=== PATIENT | male | born 1950 | race Caucasian/White ===

== ENCOUNTER 2024-03-15 11:11 | Day surgery (SDC) | payer MEDICARE, OTHER ==
[~2024-03-15] VITALS: Ht 172.7 cm; Wt 119.5 kg
[~2024-03-15 11:11] MED LIST: ALLO300 PO; AMIT25 PO; AMLO5 PO; ASPI81CH PO; ASPI81EC; ASPI81EC PO; ATOR10; ATOR10 PO; ATOR20 PO; Balanced Salt Epinephrine Irrigation Solution 500 mL IR SCH; CEPH500 PO; CLOP75 PO; COLPRO; Cymbalta20 MG; DULO60 PO; ESOM20 PO; FentaNYL Citrate 50 MCG/ML 2 ML Injection ONE; GABA300 PO; ISOD40ER PO; LISI5 PO; Lidocaine HCl/Pf 1% 5 ML VIAL XX SCH; METF500 PO; METO2.5 PO; METO50 PO; METO50ER; METO50ER PO; Micro-K10 MEQ; Midazolam HCl 1MG / ML 2ML Vial ONE; Mirapex1 MG; Moxifloxacin HCL 0.5 MG/0.1 ML 0.4MLSYR RIGHTEYE SCH; NS 500 ML IV ONE; Omeprazole20 M1 PO; PHENYLEPHRINE\\TROPICAMIDE\\TETRACAINE OPHTHALMIC DILATING SOLN RIGHTEYE PRN; PRAM.125; Povidone-Iodine 450 DROP/30 ML Solution RIGHTEYE SCH; Probenecid-Col1 EACH PO; RAMI2.5; RAMI5 PO; SERT100; TAMS.4ER PO; Triamcinolone Inj Susp 40 MG / ML 1ML Vial INJ SCH; Triamcinolone Inj Susp 40 MG / ML 1ML Vial ONE; UBID200 PO
[2024-03-15] MEDS ORDERED: LAMO100 PO (11:48)
[2024-03-15] MEDS ORDERED: TORSE20 PO (11:49)
[2024-03-15] MEDS ORDERED: POTA10T PO (11:49)
[2024-03-15] MEDS ORDERED: ESCI10 PO (11:50)
[2024-03-15] MEDS ORDERED: ALBU90OI INH (11:51)
[2024-03-15] MEDS ORDERED: GLIP2.5ER PO (11:51)
[2024-03-15] MEDS ORDERED: NS 500 ML IV ONE (11:53)
[2024-03-15] MEDS ORDERED: Tetracaine HCl 0.5% Opth Soln 15 ml RIGHTEYE ONE (12:51)
[2024-03-15 14:17] VITALS: BP 169/81
== END 2024-03-15 14:04 | disposition home or self-care (01) ==
LOC: ORSCSDS 11:11
PROVIDERS: Ophthalmology
PROC: 08RJ3JZ Replacement of Right Lens with Synthetic Substitute, Percutaneous Approach (ICD-10-PCS; principal; 2024-03-15 12:30)
DX: E11.36 Type 2 diabetes mellitus with diabetic cataract (principal); H25.813 Combined forms of age-related cataract, bilateral; H21.81 Floppy iris syndrome; E11.22 Type 2 diabetes mellitus with diabetic chronic kidney disease; I12.9 Hypertensive chronic kidney disease with stage 1 through stage 4 chronic kidney disease, or unspecified chronic kidney disease; N18.9 Chronic kidney disease, unspecified; Z79.4 Long term (current) use of insulin; Z79.02 Long term (current) use of antithrombotics/antiplatelets; Z79.899 Other long term (current) drug therapy; E66.01 Morbid (severe) obesity due to excess calories; Z68.41 Body mass index [BMI] 40.0-44.9, adult; Z87.891 Personal history of nicotine dependence; I25.2 Old myocardial infarction; G47.33 Obstructive sleep apnea (adult) (pediatric)
CPT/HCPCS: 82947; J2250; J3010; J3301; J7040; V2632

== ENCOUNTER 2024-03-22 10:48 | Day surgery (SDC) | payer MEDICARE, OTHER ==
[~2024-03-22] VITALS: Ht 172.7 cm; Wt 117.5 kg
[~2024-03-22 10:48] MED LIST changes: +ALBU90OI INH; +ESCI10 PO; -FentaNYL Citrate 50 MCG/ML 2 ML Injection ONE; +GLIP2.5ER PO; +LAMO100 PO; -Midazolam HCl 1MG / ML 2ML Vial ONE; +Moxifloxacin HCL 0.5 MG/0.1 ML 0.4MLSYR LEFTEYE SCH; -Moxifloxacin HCL 0.5 MG/0.1 ML 0.4MLSYR RIGHTEYE SCH; +PHENYLEPHRINE\\TROPICAMIDE\\TETRACAINE OPHTHALMIC DILATING SOLN LEFTEYE PRN; -PHENYLEPHRINE\\TROPICAMIDE\\TETRACAINE OPHTHALMIC DILATING SOLN RIGHTEYE PRN; +POTA10T PO; +Povidone-Iodine 450 DROP/30 ML Solution LEFTEYE SCH; -Povidone-Iodine 450 DROP/30 ML Solution RIGHTEYE SCH; +TORSE20 PO
[2024-03-22] MEDS ORDERED: NS 500 ML IV ONE (11:54)
[2024-03-22] MEDS ORDERED: Tetracaine HCl 0.5% Opth Soln 15 ml LEFTEYE ONE (12:30)
[2024-03-22] MEDS ORDERED: Midazolam HCl 1MG / ML 2ML Vial ONE (12:30)
[2024-03-22 13:17] VITALS: BP 141/78
--- NOTE | 2024-03-22 13:19 | NUR ---
03/22/24 1319 MERLY CURRAN IN WITH PT POSTOP. REVEIWED DC INSTRUCTIONS WITH PT AND IN PREOP. WENT OVER HIGHLIGHTS BUT SAID THAT THEY DIDN'T NEED TO REPEAT IN SDU. COPIES GIVEN TO PT WELL. 2ND EYE, SURGERY WAS JUST DONE LAST WEEK STATES. VERY PLEASANT PATIENT AND .
== END 2024-03-22 13:15 | disposition home or self-care (01) ==
LOC: ORSCSDS 10:48
PROVIDERS: Ophthalmology
PROC: 08RK3JZ Replacement of Left Lens with Synthetic Substitute, Percutaneous Approach (ICD-10-PCS; principal; 2024-03-22 12:30)
DX: E11.36 Type 2 diabetes mellitus with diabetic cataract (principal); H25.812 Combined forms of age-related cataract, left eye; Z96.1 Presence of intraocular lens; I12.9 Hypertensive chronic kidney disease with stage 1 through stage 4 chronic kidney disease, or unspecified chronic kidney disease; E11.22 Type 2 diabetes mellitus with diabetic chronic kidney disease; N18.9 Chronic kidney disease, unspecified; I25.2 Old myocardial infarction; J44.9 Chronic obstructive pulmonary disease, unspecified; Z87.891 Personal history of nicotine dependence; I25.10 Atherosclerotic heart disease of native coronary artery without angina pectoris; E66.9 Obesity, unspecified; Z68.39 Body mass index [BMI] 39.0-39.9, adult; Z79.02 Long term (current) use of antithrombotics/antiplatelets; Z79.899 Other long term (current) drug therapy
CPT/HCPCS: 82947; J2250; J3301; J7040; V2632